=== PATIENT | female | born 1950 | race Hispanic/Latino ===

== ENCOUNTER → 2019-04-12 | Outpatient (CLI) | payer MEDICARE ==
--- NOTE | 2019-04-29 14:32 | Diagnostic Imaging Report ---
#[id number] - MGSCRBIL #BILATERAL DIGITAL SCREENING MAMMOGRAM WITH CAD: 04/12/2019 CLINICAL: Routine screening. No prior exams were available for comparison. There are scattered fibroglandular elements in both breasts. Current study was also evaluated with a Computer Aided Detection (CAD) system. There are benign calcifications in both breasts. There also are benign lymph nodes in both breasts. Additionally there are benign vascular calcifications in the right breast. No significant masses, calcifications, or other findings are seen in either breast. IMPRESSION: BENIGN There is no mammographic evidence of malignancy. A 1 year screening mammogram is recommended. The patient will be notified by letter of the results. JON [email or web address]:04/29/2019 10:34:59 [employer] Support: Leonila COLON)(Jean), [facility] letter sent: Normal Exam Mammogram BI-RADS: 2 Benign
== END ==
LOC: MAMMO 10:23 → EDBD 11:00
PROVIDERS: ATTEND Internal Medicine
DX: Z12.31 Encounter for screening mammogram for malignant neoplasm of breast (principal)
CPT/HCPCS: 77067

== ENCOUNTER → 2020-05-20 | Outpatient (CLI) | payer MEDICARE | LOC: MAMMO 10:55 | PROVIDERS: ATTEND Internal Medicine | DX: Z12.31 Encounter for screening mammogram for malignant neoplasm of breast (principal) | CPT/HCPCS: 77067 ==

== ENCOUNTER → 2020-09-16 | Outpatient (CLI) | payer MEDICARE | LOC: CT 15:07 | PROVIDERS: ATTEND Internal Medicine | DX: Z72.0 Tobacco use (principal) | CPT/HCPCS: 71250 ==

== ENCOUNTER → 2021-05-24 | Outpatient (CLI) | payer MEDICARE | LOC: MAMMO 14:22 | PROVIDERS: ATTEND Internal Medicine | DX: Z12.31 Encounter for screening mammogram for malignant neoplasm of breast (principal) | CPT/HCPCS: 77067 ==

== ENCOUNTER → 2022-06-08 | Outpatient (CLI) | payer MEDICARE | LOC: MAMMO 12:53 | PROVIDERS: ATTEND Internal Medicine | DX: Z12.31 Encounter for screening mammogram for malignant neoplasm of breast (principal) | CPT/HCPCS: 77067 ==

== ENCOUNTER → 2022-09-30 | Outpatient (CLI) | payer MEDICARE | LOC: DX 14:24 | PROVIDERS: ATTEND Internal Medicine | DX: M85.88 Other specified disorders of bone density and structure, other site (principal) | CPT/HCPCS: 77080 ==

== ENCOUNTER → 2023-02-08 | Outpatient (REF) | payer MEDICARE ==
[~2023-02-08] MED LIST: GADOBENATE DIMEGLUMINE 1 ML IV ONE
== END ==
LOC: MRI 10:31
PROVIDERS: ATTEND Internal Medicine
DX: I65.21 Occlusion and stenosis of right carotid artery (principal)
CPT/HCPCS: 70549

== ENCOUNTER 2023-08-21 09:16 | Inpatient (IN) | payer MEDICARE ==
[~2023-08-21] VITALS: Ht 152.4 cm; Wt 65.8 kg
[2023-08-21] VITALS (7 sets, daily range): BP systolic 98–121; BP diastolic 42–65; PULSE 70–86; RESP 17–20; TEMP 97–98.4; O2SAT 89–100
[2023-08-21] MEDS: SODIUM CHLORIDE 0.9% 1000ML 1,000 ML IV STA (10:15)
[2023-08-21] MEDS: HYDROCODONE/APAP 5MG-325MG TAB PO ONE (10:23)
[2023-08-21 10:24] LABS: BASOPHILS % 0.1 % (0.0-1.0); EOSINOPHILS # (AUTO) 0.1 (0.0-0.4); EOSINOPHILS % 0.3 % (0.0-6.0); HEMATOCRIT 29.5 % (34.2-44.1); HEMOGLOBIN 9.7 g/dL (12.0-16.0); LYMPHOCYTES # (AUTO) 0.8 (1.0-3.2); LYMPHOCYTES % 4.7 % (18.0-39.1); MEAN CORPUSCULAR HEMOGLOBIN 28.4 pg (28-32); MEAN CORPUSCULAR HGB CONC 32.9 g/dL (31-35); MEAN CORPUSCULAR VOLUME 86.5 fL (81-99); MONOCYTES # (AUTO) 0.9 (0.2-0.8); MONOCYTES % 5.4 % (4.4-11.3); NEUTROPHILS # (AUTO) 14.9 (2.1-6.9); NEUTROPHILS % 88.9 % (38.7-80.0); PLATELET COUNT 233 x10e3/uL (140-360); RED BLOOD COUNT 3.41 x10e6/uL (3.6-5.1); RED CELL DISTRIBUTION WIDTH 14.7 % (11.7-14.4)
[2023-08-21 10:38] LABS: INR 1.12; PROTHROMBIN TIME 15.2 seconds (11.9-14.5)
[2023-08-21 10:49] LABS: TROPONIN I 0.023 ng/mL (0-0.300)
[2023-08-21 10:52] LABS: ALBUMIN 2.4 g/dL (3.5-5.0); ALBUMIN/GLOBULIN RATIO 0.4 (0.8-2.0); ANION GAP 16.1 mmol/L (8-16); BILIRUBIN,TOTAL 0.8 mg/dL (0.2-1.2); CREATININE, SERUM 1.86 mg/dL (0.57-1.11); MAGNESIUM 1.9 MG/DL (1.3-2.1); POTASSIUM 4.1 mmol/L (3.5-5.1)
[2023-08-21] MEDS: Morphine 4mg INJECTION 4 MG/ML INJ IV ONE (11:33)
[2023-08-21] MEDS: ONDANSETRON HCL INJ 2MG/ML 2ML 2 MG/ML VIAL IV STA (11:33)
[2023-08-21] MEDS: NICOTINE 14 MG/EA PATCH TOP SCH (13:00)
[2023-08-21] MEDS: IPRATROPIUM BROMIDE 0.02% 2.5 ML NEB NEB SCH (13:33)
[2023-08-21] MEDS: ALBUTEROL SULF 0.083% NEB SOLN 3 ML NEB NEB SCH (13:33)
[2023-08-21] MEDS ORDERED: ALBUTEROL/IPRATROPIUM 3 ML NEB NEB PRN (15:30)
[2023-08-21] MEDS ORDERED: ONDANSETRON HCL INJ 2MG/ML 2ML 2 MG/ML VIAL IV PRN (15:30)
[2023-08-21] MEDS: ACETAMINOPHEN 325 MG TAB PO PRN (15:34)
[2023-08-21] MEDS ORDERED: LISINOPRIL10 MG PO (15:42)
[2023-08-21] MEDS ORDERED: OZEMPIC1 MG/0.71 SC (15:42)
[2023-08-21] MEDS ORDERED: LEVEMIR100 UNIT/1 SC (15:42)
[2023-08-21] MEDS ORDERED: EZETIMIBE10 MG PO (15:42)
[2023-08-21] MEDS ORDERED: SYNJARDY XR 251 EACH PO (15:42)
[2023-08-21] MEDS ORDERED: ATORVASTATIN CA20 MG PO (15:42)
[2023-08-21] MEDS ORDERED: zinc PO (15:42)
[2023-08-21] MEDS ORDERED: GEMTESA75 MG PO (15:42)
[2023-08-21] MEDS ORDERED: GABAPENTIN400 MG PO (15:42)
[2023-08-21 17:30] LABS: TROPONIN I 0.023 ng/mL (0-0.300)
[2023-08-21] MEDS ORDERED: DEXTROSE 50% SYRINGE 50 ML IV PRN (18:15)
[2023-08-21] MEDS: METHYLPREDNISOLONE SOD SUCC 40 MG/ML VIAL 1ML IV ONE (18:58)
[2023-08-21] MEDS: SODIUM CHLORIDE 0.9% 1000ML 1,000 ML IV SCH (18:59)
[2023-08-21] MEDS: ALBUTEROL/IPRATROPIUM 3 ML NEB NEB SCH (19:01)
[2023-08-21] MEDS: GABAPENTIN 400 MG CAP PO SCH (20:41)
[2023-08-21] MEDS: CELECOXIB 100 MG CAP PO SCH (20:41)
[2023-08-21] MEDS: INSULIN LISPRO 100 UNIT/1 ML 3ML VIAL SQ SCH (20:50)
[2023-08-21] MEDS: BENZONATATE 100 MG CAP PO PRN (23:01)
[2023-08-21] MEDS: TRAMADOL HCL 50 MG TAB PO PRN (23:02)
[2023-08-22] VITALS (13 sets, daily range): BP systolic 113–129; BP diastolic 49–57; PULSE 68–102; RESP 16–20; TEMP 97.3–98.4; O2SAT 92–100
[2023-08-22 06:10] LABS: BASOPHILS % 0.1 % (0.0-1.0); HEMATOCRIT 27.2 % (34.2-44.1); HEMOGLOBIN 8.8 g/dL (12.0-16.0); LYMPHOCYTES # (AUTO) 0.4 (1.0-3.2); MEAN CORPUSCULAR HEMOGLOBIN 28.3 pg (28-32); MEAN CORPUSCULAR HGB CONC 32.4 g/dL (31-35); MEAN CORPUSCULAR VOLUME 87.5 fL (81-99); MONOCYTES # (AUTO) 0.1 (0.2-0.8); MONOCYTES % 0.8 % (4.4-11.3); NEUTROPHILS # (AUTO) 11.1 (2.1-6.9); NEUTROPHILS % 95.6 % (38.7-80.0); PLATELET COUNT 205 x10e3/uL (140-360); RED BLOOD COUNT 3.11 x10e6/uL (3.6-5.1); RED CELL DISTRIBUTION WIDTH 14.6 % (11.7-14.4); WHITE BLOOD COUNT 11.63 x10e3/uL (4.8-10.8)
[2023-08-22 06:25] LABS: ALBUMIN/GLOBULIN RATIO 0.4 (0.8-2.0); ANION GAP 14.3 mmol/L (8-16); BILIRUBIN,TOTAL 0.3 mg/dL (0.2-1.2); CALCIUM 9.8 mg/dL (8.4-10.2); CREATININE, SERUM 1.66 mg/dL (0.57-1.11); POTASSIUM 4.3 mmol/L (3.5-5.1); TOTAL PROTEIN 7.3 g/dL (6.5-8.1)
[2023-08-22 06:47] LABS: TROPONIN I 0.028 ng/mL (0-0.300)
[2023-08-22] MEDS: EZETIMIBE 10 MG TAB PO SCH (08:18)
[2023-08-22] MEDS: ATORVASTATIN 20 MG TAB PO SCH (08:19)
[2023-08-22] MEDS ORDERED: LISINOPRIL 10 MG TAB PO SCH (09:00)
[2023-08-22] MEDS: METHYLPREDNISOLONE SOD SUCC 40 MG/ML VIAL 1ML IV SCH (09:41)
[2023-08-22] MEDS: INSULIN GLARGINE 100 UNITS/ML VIAL SQ ONE (09:53)
[2023-08-22] MEDS ORDERED: ONDANSETRON HCL 4 MG ORAL DISINTEGRATING TAB PO PRN (11:00)
[2023-08-22] MEDS: INSULIN GLARGINE 100 UNITS/ML VIAL SC SCH (22:01)
[2023-08-23] VITALS (11 sets, daily range): BP systolic 136–138; BP diastolic 55–61; PULSE 80–92; RESP 16–20; TEMP 97.5–98.5; O2SAT 94–100
[2023-08-23 06:11] LABS: BASOPHILS % 0.1 % (0.0-1.0); HEMATOCRIT 25.7 % (34.2-44.1); HEMOGLOBIN 8.2 g/dL (12.0-16.0); LYMPHOCYTES # (AUTO) 0.5 (1.0-3.2); LYMPHOCYTES % 2.4 % (18.0-39.1); MEAN CORPUSCULAR HGB CONC 31.9 g/dL (31-35); MEAN CORPUSCULAR VOLUME 87.7 fL (81-99); MONOCYTES # (AUTO) 0.3 (0.2-0.8); MONOCYTES % 1.5 % (4.4-11.3); NEUTROPHILS # (AUTO) 19.3 (2.1-6.9); NEUTROPHILS % 94.8 % (38.7-80.0); PLATELET COUNT 234 x10e3/uL (140-360); RED BLOOD COUNT 2.93 x10e6/uL (3.6-5.1); RED CELL DISTRIBUTION WIDTH 14.8 % (11.7-14.4); WHITE BLOOD COUNT 20.39 x10e3/uL (4.8-10.8)
[2023-08-23 07:45] LABS: ANION GAP 13.2 mmol/L (8-16); CREATININE, SERUM 1.71 mg/dL (0.57-1.11); POTASSIUM 4.2 mmol/L (3.5-5.1)
[2023-08-23 08:08] LABS: THYROID STIMULATING HORMONE 0.268 uIU/mL (0.350-4.940)
[2023-08-23] MEDS ORDERED: DEXTROSE 50% SYRINGE 50 ML IV PRN (08:15)
[2023-08-23 08:21] LABS: FOLATE 11.9 ng/mL (7.0-15.4)
[2023-08-23] MEDS: INSULIN GLARGINE 100 UNITS/ML VIAL SQ ONE (08:29)
[2023-08-23] MEDS: METHYLPREDNISOLONE SOD SUCC 40 MG/ML VIAL 1ML IV SCH (09:38)
[2023-08-23] MEDS: GUAIFENESIN 600 MG TAB PO SCH (09:38)
[2023-08-23] MEDS ORDERED: GUAIFENESIN/CODEINE 5 ML LIQD PO PRN (09:45)
[2023-08-23] MEDS: SODIUM CHLORIDE 0.9% 1000ML 1,000 ML IV ONE (10:28)
[2023-08-23 10:42] LABS: LYMPHOCYTES % (MANUAL) 2 % (19-48); NEUTROPHILS % (MANUAL) 98 % (40-74); PLATELET ESTIMATE ADEQUATE; PLATELET MORPHOLOGY COMMENT NORMAL; RBC MORPHOLOGY COMMENT NORMAL
[2023-08-23] MEDS: INSULIN LISPRO 100 UNIT/1 ML 3ML VIAL SQ SCH (12:01)
[2023-08-23] MEDS: GUAIFENESIN/CODEINE 5 ML LIQD PO PRN (12:22)
[2023-08-24] VITALS (12 sets, daily range): BP systolic 123–144; BP diastolic 50–62; PULSE 78–91; RESP 16–21; TEMP 97.2–98.8; O2SAT 94–100
[2023-08-24 06:21] LABS: BASOPHILS % 0.1 % (0.0-1.0); HEMOGLOBIN 7.9 g/dL (12.0-16.0); LYMPHOCYTES # (AUTO) 0.9 (1.0-3.2); LYMPHOCYTES % 5.7 % (18.0-39.1); MEAN CORPUSCULAR HEMOGLOBIN 28.4 pg (28-32); MEAN CORPUSCULAR HGB CONC 32.9 g/dL (31-35); MEAN CORPUSCULAR VOLUME 86.3 fL (81-99); MONOCYTES # (AUTO) 0.5 (0.2-0.8); MONOCYTES % 3.1 % (4.4-11.3); NEUTROPHILS # (AUTO) 14.7 (2.1-6.9); NEUTROPHILS % 89.9 % (38.7-80.0); PLATELET COUNT 235 x10e3/uL (140-360); RED BLOOD COUNT 2.78 x10e6/uL (3.6-5.1); RED CELL DISTRIBUTION WIDTH 14.9 % (11.7-14.4); WHITE BLOOD COUNT 16.36 x10e3/uL (4.8-10.8)
[2023-08-24 06:47] LABS: ALBUMIN/GLOBULIN RATIO 0.4 (0.8-2.0); ANION GAP 12.4 mmol/L (8-16); BILIRUBIN,TOTAL 0.2 mg/dL (0.2-1.2); CALCIUM 9.4 mg/dL (8.4-10.2); CREATININE, SERUM 1.43 mg/dL (0.57-1.11); POTASSIUM 4.4 mmol/L (3.5-5.1); TOTAL PROTEIN 6.6 g/dL (6.5-8.1)
[2023-08-24] MEDS: SODIUM CHLORIDE 0.9% 1000ML 1,000 ML IV ONE (10:56)
[2023-08-24] MEDS: BENZONATATE 100 MG CAP PO SCH (11:04)
[2023-08-25] VITALS (11 sets, daily range): BP systolic 106–126; BP diastolic 49–66; PULSE 71–88; RESP 16–19; TEMP 97.6–98.4; O2SAT 95–100
[2023-08-25 05:32] LABS: BASOPHILS % 0.1 % (0.0-1.0); EOSINOPHILS # (AUTO) 0.1 (0.0-0.4); EOSINOPHILS % 0.9 % (0.0-6.0); HEMATOCRIT 25.3 % (34.2-44.1); HEMOGLOBIN 8.1 g/dL (12.0-16.0); LYMPHOCYTES # (AUTO) 1.8 (1.0-3.2); LYMPHOCYTES % 15.8 % (18.0-39.1); MEAN CORPUSCULAR HEMOGLOBIN 27.9 pg (28-32); MEAN CORPUSCULAR VOLUME 87.2 fL (81-99); MONOCYTES # (AUTO) 0.6 (0.2-0.8); NEUTROPHILS # (AUTO) 8.6 (2.1-6.9); NEUTROPHILS % 76.8 % (38.7-80.0); PLATELET COUNT 227 x10e3/uL (140-360); RED CELL DISTRIBUTION WIDTH 15.1 % (11.7-14.4); WHITE BLOOD COUNT 11.19 x10e3/uL (4.8-10.8)
[2023-08-25 06:23] LABS: ALBUMIN/GLOBULIN RATIO 0.5 (0.8-2.0); ANION GAP 13.6 mmol/L (8-16); BILIRUBIN,TOTAL 0.2 mg/dL (0.2-1.2); CALCIUM 8.9 mg/dL (8.4-10.2); CREATININE, SERUM 1.31 mg/dL (0.57-1.11); POTASSIUM 4.6 mmol/L (3.5-5.1); TOTAL PROTEIN 6.2 g/dL (6.5-8.1)
[2023-08-26] VITALS (7 sets, daily range): BP systolic 108–130; BP diastolic 47–59; PULSE 73–94; RESP 16–18; TEMP 97.6–98.8; O2SAT 97–99
[2023-08-26] MEDS: PANTOPRAZOLE SOD 40 MG TABEC PO SCH (09:19)
== END 2023-08-26 14:00 | disposition home or self-care (01) | DRG 190 ==
LOC: ER 09:22 → ERHOLD 12:48 → MED/SURG3 14:08
PROVIDERS: ADMIT Internal Medicine; ATTEND Internal Medicine
DX: J44.0 Chronic obstructive pulmonary disease with (acute) lower respiratory infection (principal); J18.9 Pneumonia, unspecified organism; N17.9 Acute kidney failure, unspecified; J44.1 Chronic obstructive pulmonary disease with (acute) exacerbation; I12.9 Hypertensive chronic kidney disease with stage 1 through stage 4 chronic kidney disease, or unspecified chronic kidney disease; E11.22 Type 2 diabetes mellitus with diabetic chronic kidney disease; N18.30 Chronic kidney disease, stage 3 unspecified; E11.65 Type 2 diabetes mellitus with hyperglycemia; E11.42 Type 2 diabetes mellitus with diabetic polyneuropathy; Z11.52 Encounter for screening for COVID-19; T38.0X5A Adverse effect of glucocorticoids and synthetic analogues, initial encounter; E78.5 Hyperlipidemia, unspecified; F17.200 Nicotine dependence, unspecified, uncomplicated
CPT/HCPCS: 36415; 71045; 71046; 71250; 80048; 80053; 82550; 82607; 82746; 82948; 83036; 83540; 83605; 83735; 83880; 84443; 84466; 84484; 85025; 85379; 85610; 85730; 87040; 87400; 87420; 93005; 93306; 94799; 96372; 99284; J0696; J1815; J2270; J2405; J2919; J7030; J7050; U0002

== ENCOUNTER → 2023-12-06 | Outpatient (REF) | payer MEDICARE ==
[~2023-12-06] MED LIST changes: +ATORVASTATIN CA20 MG PO; +EZETIMIBE10 MG PO; +GABAPENTIN400 MG PO; -GADOBENATE DIMEGLUMINE 1 ML IV ONE; +GEMTESA75 MG PO; +LEVEMIR100 UNIT/1 SC; +LISINOPRIL10 MG PO; +OZEMPIC1 MG/0.71 SC; +SYNJARDY XR 251 EACH PO; +zinc PO
== END ==
LOC: RAD 12:13
PROVIDERS: ATTEND Internal Medicine
DX: M43.07 Spondylolysis, lumbosacral region (principal)
CPT/HCPCS: 72110

== ENCOUNTER → 2023-12-06 | Outpatient (REF) | payer MEDICARE | LOC: RAD 12:06 | PROVIDERS: ATTEND Internal Medicine Critical Care Medicine | DX: J18.9 Pneumonia, unspecified organism (principal) | CPT/HCPCS: 71046 ==

== ENCOUNTER → 2024-04-26 | Outpatient (REF) | payer MEDICARE ==
[~2024-04-26] MED LIST changes: +IOPAMIDOL 370 MG/ML 100 ML INFUS..BTL INJ ONE; +SODIUM CHLORIDE 0.9% 500ML 500 ML ONE
[2024-04-26 16:28] LABS: CREATININE, SERUM 1.53 mg/dL (0.57-1.11)
== END ==
LOC: CT 15:40
PROVIDERS: ATTEND Internal Medicine
DX: R10.10 Upper abdominal pain, unspecified (principal); R91.1 Solitary pulmonary nodule
CPT/HCPCS: 36415; 71260; 74019; 82565; 84520; 96360; J7040; Q9967

== ENCOUNTER → 2024-07-26 | Outpatient (REF) | payer MEDICARE ==
[~2024-07-26] MED LIST changes: -IOPAMIDOL 370 MG/ML 100 ML INFUS..BTL INJ ONE; -SODIUM CHLORIDE 0.9% 500ML 500 ML ONE
== END ==
LOC: MAMMO 13:23
PROVIDERS: ATTEND Internal Medicine
DX: Z12.31 Encounter for screening mammogram for malignant neoplasm of breast (principal); M85.88 Other specified disorders of bone density and structure, other site
CPT/HCPCS: 77067; 77080

== ENCOUNTER 2024-10-09 18:10 | Inpatient (IN) | payer MEDICARE ==
[~2024-10-09] VITALS: Ht 152.4 cm; Wt 71.8 kg
[2024-10-09 18:58] LABS: BASOPHILS % 0.2 % (0.0-1.0); EOSINOPHILS # (AUTO) 0.1 (0.0-0.4); EOSINOPHILS % 0.8 % (0.0-6.0); HEMATOCRIT 28.5 % (34.2-44.1); LYMPHOCYTES # (AUTO) 0.9 (1.0-3.2); LYMPHOCYTES % 7.2 % (18.0-39.1); MEAN CORPUSCULAR HGB CONC 31.6 g/dL (31-35); MEAN CORPUSCULAR VOLUME 88.8 fL (81-99); MONOCYTES # (AUTO) 0.6 (0.2-0.8); MONOCYTES % 5.1 % (4.4-11.3); NEUTROPHILS # (AUTO) 10.8 (2.1-6.9); NEUTROPHILS % 86.2 % (38.7-80.0); PLATELET COUNT 202 x10e3/uL (140-360); RED BLOOD COUNT 3.21 x10e6/uL (3.6-5.1); RED CELL DISTRIBUTION WIDTH 15.1 % (11.7-14.4); WHITE BLOOD COUNT 12.47 x10e3/uL (4.8-10.8)
[2024-10-09] MEDS ORDERED: PIPERACILLIN/TAZOBACTAM 3.375 GM VIAL ONE (19:05)
[2024-10-09] MEDS: ACETAMINOPHEN 325 MG TAB PO STA (19:09)
[2024-10-09] MEDS: SODIUM CHLORIDE 0.9% 1000ML 1,000 ML IV STA (19:09)
[2024-10-09 19:11] LABS: ALBUMIN 2.7 g/dL (3.5-5.0); ALBUMIN/GLOBULIN RATIO 0.6 (0.8-2.0); ANION GAP 14.6 mmol/L (8-16); BILIRUBIN,TOTAL 0.6 mg/dL (0.2-1.2); CALCIUM 9.9 mg/dL (8.4-10.2); CREATININE, SERUM 1.64 mg/dL (0.57-1.11); POTASSIUM 4.6 mmol/L (3.5-5.1); TOTAL PROTEIN 7.5 g/dL (6.5-8.1)
[2024-10-09 19:16] LABS: TROPONIN I 0.006 ng/mL (0-0.300)
[2024-10-09 20:20] LABS: STREPTOCOCCUS GRP A ANTIGEN NEGATIVE (NEGATIVE)
[2024-10-09 20:22] VITALS: TEMP 99.3
[2024-10-09 20:27] LABS: INFLUENZA A AG NEGATIVE (NEGATIVE)
[2024-10-09 20:28] LABS: CORONAVIRUS COVID-19 AG NEGATIVE (NEGATIVE); INFLUENZA B AG NEGATIVE (NEGATIVE)
[2024-10-09 20:31] LABS: CLARITY,URINE CLEAR (CLEAR); COLOR,URINE YELLOW (YELLOW)
[2024-10-09 20:34] LABS: LEUKOCYTE ESTERASE ,URINE NEGATIVE (NEGATIVE); NITRITE,URINE NEGATIVE (NEGATIVE); PH,URINE 5.5 (5 - 7)
[2024-10-09 20:35] LABS: GLUCOSE, URINE >=1000 (NEGATIVE); KETONES,URINE NEGATIVE (NEGATIVE); PROTEIN,URINE DIPSTICK 2+ (NEGATIVE); URINE UROBILINOGEN 1 mg/dL (0.2 - 1)
[2024-10-09 20:36] LABS: BILIRUBIN,URINE NEGATIVE (NEGATIVE)
[2024-10-09 20:45] LABS: BACTERIA,URINE FEW /HPF; EPITHELIAL CELLS,URINE FEW /LPF; RBC,URINE 0-5 /HPF (0-5)
[2024-10-09 21:04] VITALS: PULSE 79; RESP 24
[2024-10-09] MEDS: SODIUM CHLORIDE 0.9% 1000ML 1,000 ML IV SCH (21:12)
[2024-10-09 22:29] VITALS: PULSE 71; RESP 18; O2SAT 95
[2024-10-09] MEDS ORDERED: FENOFIBRATE145 M1 PO (23:30)
[2024-10-09] MEDS ORDERED: LOSARTAN POTASS25 MG PO (23:30)
[2024-10-09] MEDS ORDERED: FUROSEMIDE20 MG PO (23:30)
[2024-10-09] MEDS ORDERED: TIZANIDINE HCL2 MG PO (23:33)
[2024-10-09] MEDS ORDERED: PENTOXIFYLLINE400 MG PO (23:33)
[2024-10-10] VITALS (12 sets, daily range): BP systolic 104–115; BP diastolic 42–53; PULSE 71–88; RESP 18–20; TEMP 97.3–100; O2SAT 93–100
[2024-10-10 06:47] LABS: ANION GAP 14.1 mmol/L (8-16); CALCIUM 9.3 mg/dL (8.4-10.2); CREATININE, SERUM 1.49 mg/dL (0.57-1.11); POTASSIUM 4.1 mmol/L (3.5-5.1)
[2024-10-10 07:00] LABS: BASOPHILS % 0.3 % (0.0-1.0); EOSINOPHILS # (AUTO) 0.1 (0.0-0.4); EOSINOPHILS % 1.3 % (0.0-6.0); HEMATOCRIT 26.2 % (34.2-44.1); HEMOGLOBIN 8.1 g/dL (12.0-16.0); LYMPHOCYTES % 10.8 % (18.0-39.1); MEAN CORPUSCULAR HEMOGLOBIN 28.4 pg (28-32); MEAN CORPUSCULAR HGB CONC 30.9 g/dL (31-35); MEAN CORPUSCULAR VOLUME 91.9 fL (81-99); MONOCYTES # (AUTO) 0.5 (0.2-0.8); MONOCYTES % 5.4 % (4.4-11.3); NEUTROPHILS # (AUTO) 7.8 (2.1-6.9); NEUTROPHILS % 81.7 % (38.7-80.0); PLATELET COUNT 168 x10e3/uL (140-360); RED BLOOD COUNT 2.85 x10e6/uL (3.6-5.1)
[2024-10-10 07:15] LABS: TROPONIN I 0.004 ng/mL (0-0.300)
[2024-10-10] MEDS: Morphine 4mg INJECTION 4 MG/ML INJ IV PRN (07:29)
[2024-10-10] MEDS ORDERED: DEXTROSE 50% SYRINGE 50 ML IV PRN (12:00)
[2024-10-10] MEDS: GABAPENTIN 400 MG CAP PO SCH (13:20)
[2024-10-10 14:02] LABS: TROPONIN I 0.007 ng/mL (0-0.300)
[2024-10-10] MEDS: FENOFIBRATE 145 MG TAB PO SCH (14:37)
[2024-10-10] MEDS ORDERED: GUAIFENESIN 600 MG TAB PO ONE ×2 (15:45→21:15)
[2024-10-10] MEDS ORDERED: SODIUM CHLORIDE 0.9% IV ONE (15:45)
[2024-10-10] MEDS: PENTOXIFYLLINE 400 MG TAB CR PO SCH (16:25)
[2024-10-10] MEDS: KETOROLAC TROMETHAMINE 30 MG/ML VIAL IV ONE (16:27)
[2024-10-10] MEDS: ACETYLCYSTEINE 200 MG/ML 4 ML VIAL PO ONE ×2 (16:28→21:03)
[2024-10-10] MEDS: SODIUM CHLORIDE 0.9% 1000ML 1,000 ML IV ONE (16:30)
[2024-10-10] MEDS: INSULIN REGULAR, HUMAN 100 UNIT/1 ML SQ SCH (16:35)
[2024-10-10] MEDS: METFORMIN HCL 500 MG TAB PO SCH (17:00)
[2024-10-10] MEDS ORDERED: IOPAMIDOL 370 MG/ML 100 ML INFUS..BTL INJ ONE (18:32)
[2024-10-10] MEDS: ATORVASTATIN 20 MG TAB PO SCH (21:01)
[2024-10-11] VITALS (7 sets, daily range): BP systolic 103–131; BP diastolic 41–60; PULSE 69–84; RESP 17–20; TEMP 97.3–98.4; O2SAT 94–100
[2024-10-11] MEDS: ONDANSETRON HCL INJ 2MG/ML 2ML 2 MG/ML VIAL IV PRN (06:07)
[2024-10-11 06:14] LABS: BASOPHILS % 0.2 % (0.0-1.0); EOSINOPHILS # (AUTO) 0.2 (0.0-0.4); HEMATOCRIT 23.5 % (34.2-44.1); HEMOGLOBIN 7.3 g/dL (12.0-16.0); LYMPHOCYTES % 10.9 % (18.0-39.1); MEAN CORPUSCULAR HEMOGLOBIN 28.7 pg (28-32); MEAN CORPUSCULAR HGB CONC 31.1 g/dL (31-35); MEAN CORPUSCULAR VOLUME 92.5 fL (81-99); MONOCYTES # (AUTO) 0.5 (0.2-0.8); MONOCYTES % 5.8 % (4.4-11.3); NEUTROPHILS # (AUTO) 7.1 (2.1-6.9); NEUTROPHILS % 80.6 % (38.7-80.0); PLATELET COUNT 187 x10e3/uL (140-360); RED BLOOD COUNT 2.54 x10e6/uL (3.6-5.1); RED CELL DISTRIBUTION WIDTH 15.5 % (11.7-14.4); WHITE BLOOD COUNT 8.81 x10e3/uL (4.8-10.8)
[2024-10-11 07:06] LABS: THYROID STIMULATING HORMONE 2.104 uIU/mL (0.350-4.940)
[2024-10-11 07:36] LABS: ALBUMIN 2.1 g/dL (3.5-5.0); ALBUMIN/GLOBULIN RATIO 0.5 (0.8-2.0); ANION GAP 15.3 mmol/L (8-16); BILIRUBIN,TOTAL 0.4 mg/dL (0.2-1.2); CALCIUM 9.2 mg/dL (8.4-10.2); CREATININE, SERUM 1.66 mg/dL (0.57-1.11); POTASSIUM 4.3 mmol/L (3.5-5.1); TOTAL PROTEIN 6.5 g/dL (6.5-8.1)
[2024-10-11 07:43] LABS: % IRON SATURATION 9 % (15-50); IRON 18 ug/dL (50-170); TOTAL IRON BINDING CAPACITY 202 ug/dL (261-478); TRANSFERRIN 144 mg/dL (180-382)
[2024-10-11] MEDS: FUROSEMIDE 20 MG TAB PO SCH (09:21)
[2024-10-11] MEDS: LOSARTAN POTASSIUM 25 MG TAB PO SCH (09:22)
[2024-10-11] MEDS: Vibegron (Gemtesa) 75 MG TAB PO SCH (09:31)
[2024-10-11] MEDS: IRON SUCROSE 100 MG in SODIUM CHLORIDE 0.9% 100 ML IV SCH (11:55)
[2024-10-12] VITALS (8 sets, daily range): BP systolic 91–144; BP diastolic 48–68; PULSE 69–88; RESP 17–22; TEMP 97.3–98.6; O2SAT 94–99
[2024-10-12 06:23] LABS: BASOPHILS % 0.2 % (0.0-1.0); EOSINOPHILS # (AUTO) 0.2 (0.0-0.4); HEMOGLOBIN 7.6 g/dL (12.0-16.0); LYMPHOCYTES # (AUTO) 1.2 (1.0-3.2); LYMPHOCYTES % 13.9 % (18.0-39.1); MEAN CORPUSCULAR HGB CONC 30.4 g/dL (31-35); MEAN CORPUSCULAR VOLUME 92.3 fL (81-99); MONOCYTES # (AUTO) 0.5 (0.2-0.8); MONOCYTES % 5.5 % (4.4-11.3); NEUTROPHILS # (AUTO) 6.6 (2.1-6.9); NEUTROPHILS % 77.7 % (38.7-80.0); PLATELET COUNT 213 x10e3/uL (140-360); RED BLOOD COUNT 2.71 x10e6/uL (3.6-5.1); RED CELL DISTRIBUTION WIDTH 15.6 % (11.7-14.4); WHITE BLOOD COUNT 8.47 x10e3/uL (4.8-10.8)
[2024-10-12 06:40] LABS: ANION GAP 13.3 mmol/L (8-16); CALCIUM 9.2 mg/dL (8.4-10.2); CREATININE, SERUM 1.9 mg/dL (0.57-1.11); POTASSIUM 4.3 mmol/L (3.5-5.1)
[2024-10-12] MEDS ORDERED: SODIUM BICARBONATE 8.4% SYRING 50 ML in SODIUM CHLORIDE 0.45% 1,000 ML IV ONE (09:45)
[2024-10-12] MEDS: PANTOPRAZOLE SOD 40 MG TABEC PO SCH (10:01)
[2024-10-12] MEDS: SODIUM BICARBONATE 8.4% VIAL 50 ML in SODIUM CHLORIDE 0.45% 1,000 ML IV ONE (11:48)
[2024-10-13 04:30] VITALS: BP 127/60; PULSE 72; RESP 17; TEMP 97.8; O2SAT 96
[2024-10-13 05:56] LABS: BASOPHILS % 0.3 % (0.0-1.0); EOSINOPHILS # (AUTO) 0.2 (0.0-0.4); EOSINOPHILS % 2.4 % (0.0-6.0); HEMATOCRIT 25.2 % (34.2-44.1); HEMOGLOBIN 7.9 g/dL (12.0-16.0); LYMPHOCYTES # (AUTO) 1.2 (1.0-3.2); LYMPHOCYTES % 17.1 % (18.0-39.1); MEAN CORPUSCULAR HEMOGLOBIN 28.5 pg (28-32); MEAN CORPUSCULAR HGB CONC 31.3 g/dL (31-35); MONOCYTES # (AUTO) 0.4 (0.2-0.8); MONOCYTES % 5.9 % (4.4-11.3); NEUTROPHILS # (AUTO) 5.3 (2.1-6.9); NEUTROPHILS % 73.6 % (38.7-80.0); PLATELET COUNT 232 x10e3/uL (140-360); RED BLOOD COUNT 2.77 x10e6/uL (3.6-5.1); RED CELL DISTRIBUTION WIDTH 15.7 % (11.7-14.4); WHITE BLOOD COUNT 7.15 x10e3/uL (4.8-10.8)
[2024-10-13 06:21] LABS: ALBUMIN 2.2 g/dL (3.5-5.0); ALBUMIN/GLOBULIN RATIO 0.5 (0.8-2.0); ANION GAP 12.4 mmol/L (8-16); BILIRUBIN,TOTAL 0.3 mg/dL (0.2-1.2); CALCIUM 9.3 mg/dL (8.4-10.2); CREATININE, SERUM 1.65 mg/dL (0.57-1.11); POTASSIUM 4.4 mmol/L (3.5-5.1); TOTAL PROTEIN 6.5 g/dL (6.5-8.1)
[2024-10-13 08:07] VITALS: BP 132/61; PULSE 74; RESP 18; TEMP 97.8; O2SAT 100
[2024-10-13 08:10] VITALS: BP 132/61; PULSE 74; RESP 18; TEMP 97.8; O2SAT 100
[2024-10-13] MEDS ORDERED: LEVOFLOXACIN250 MG PO (11:29)
[2024-10-13 13:52] VITALS: BP 129/58; PULSE 72; RESP 18; TEMP 98; O2SAT 100
== END 2024-10-13 13:50 | disposition home or self-care (01) | DRG 871 ==
LOC: ER 18:15 → ERHOLD 21:00 → MED/SURG3 21:55
PROVIDERS: ADMIT Internal Medicine; ATTEND Internal Medicine
DX: A41.9 Sepsis, unspecified organism (principal); J18.9 Pneumonia, unspecified organism; E87.20 Acidosis, unspecified; N17.9 Acute kidney failure, unspecified; I12.9 Hypertensive chronic kidney disease with stage 1 through stage 4 chronic kidney disease, or unspecified chronic kidney disease; E11.22 Type 2 diabetes mellitus with diabetic chronic kidney disease; N18.32 Chronic kidney disease, stage 3b; J44.9 Chronic obstructive pulmonary disease, unspecified; E11.40 Type 2 diabetes mellitus with diabetic neuropathy, unspecified; R07.89 Other chest pain; K21.9 Gastro-esophageal reflux disease without esophagitis; D50.9 Iron deficiency anemia, unspecified; Z79.85 Long-term (current) use of injectable non-insulin antidiabetic drugs; Z79.84 Long term (current) use of oral hypoglycemic drugs; Z11.52 Encounter for screening for COVID-19; Z79.4 Long term (current) use of insulin; Z87.891 Personal history of nicotine dependence; Z90.49 Acquired absence of other specified parts of digestive tract
CPT/HCPCS: 36415; 71045; 71260; 74177; 80048; 80053; 81001; 82550; 82607; 82746; 82948; 83036; 83518; 83540; 83605; 83690; 83880; 84443; 84466; 84484; 85025; 85045; 87040; 87070; 87086; 93005; 94799; 99252; 99284; J1756; J1885; J2270; J2405; J2470; J2543; J7030; J7050; Q9967

== ENCOUNTER → 2024-10-29 | Outpatient (REF) | payer MEDICARE ==
[~2024-10-29] MED LIST changes: +FENOFIBRATE145 M1 PO; +FUROSEMIDE20 MG PO; +LEVOFLOXACIN250 MG PO; +LOSARTAN POTASS25 MG PO; +PENTOXIFYLLINE400 MG PO; +TIZANIDINE HCL2 MG PO
== END ==
LOC: RAD 11:42
PROVIDERS: ATTEND Internal Medicine
DX: J18.9 Pneumonia, unspecified organism (principal)
CPT/HCPCS: 71046

== ENCOUNTER 2024-12-26 21:31 | Emergency (ER) | payer MEDICARE ==
[~2024-12-26] VITALS: Ht 152.4 cm; Wt 71.7 kg
[2024-12-26] MEDS ORDERED: SODIUM CHLORIDE FLUSH 10 ML SYR IV PRN (22:45)
[2024-12-26 22:57] LABS: BASOPHILS % 0.1 % (0.0-1.0); EOSINOPHILS % 0.0 % (0.0-6.0); LYMPHOCYTES % 2.4 % (18.0-39.1); MONOCYTES % 5.7 % (4.4-11.3); NEUTROPHILS % 83.9 % (38.7-80.0); RED CELL DISTRIBUTION WIDTH 15.1 % (11.7-14.4)
[2024-12-26 23:19] LABS: EST GLOMERULAR FILTRATION RATE 24.0 ML/MIN (>=60)
[2024-12-26 23:27] LABS: CORONAVIRUS COVID-19 AG NEGATIVE (NEGATIVE)
[2024-12-27] MEDS: SODIUM CHLORIDE 0.9% 1000ML 1,000 ML IV ONE (01:17)
[2024-12-27] MEDS: ONDANSETRON HCL INJ 2MG/ML 2ML 2 MG/ML VIAL IV STA (01:17)
[2024-12-27 02:37] LABS: LEUKOCYTE ESTERASE ,URINE NEGATIVE (NEGATIVE); PROTEIN,URINE DIPSTICK 2+ (NEGATIVE); URINE UROBILINOGEN 0.2 mg/dL (0.2 - 1)
[2024-12-27 02:47] VITALS: TEMP 98.6
[2024-12-27 02:56] LABS: WBC,URINE (MAN) 0-5 /HPF (0-5)
[2024-12-27 02:57] LABS: EPITHELIAL CELLS,URINE FEW /LPF
[2024-12-27 04:16] VITALS: PULSE 71; RESP 23
[2024-12-27 04:22] VITALS: BP 105/50; PULSE 71; RESP 23; TEMP 98.1; O2SAT 95
[2024-12-27 04:25] LABS: LYMPHOCYTES % (MANUAL) 4 % (19-48); MONOCYTES % (MANUAL) 10 % (3.4-9.0); NEUTROPHILS % (MANUAL) 86 % (40-74)
[2024-12-27 04:26] LABS: RBC MORPHOLOGY COMMENT NORMAL
[2024-12-27 04:27] LABS: PLATELET ESTIMATE ADEQUATE; PLATELET MORPHOLOGY COMMENT NORMAL
[2024-12-27] MEDS ORDERED: ONDANSETRON ODT4 MG PO (04:28)
[2024-12-27] MEDS ORDERED: AZITHROMYCIN250 MG PO (04:28)
== END 2024-12-27 04:40 | disposition home or self-care (01) ==
LOC: ER 12-27 00:56
DX: R05.9 Cough, unspecified (principal); J40 Bronchitis, not specified as acute or chronic; R11.2 Nausea with vomiting, unspecified; R10.10 Upper abdominal pain, unspecified; E11.22 Type 2 diabetes mellitus with diabetic chronic kidney disease; E11.65 Type 2 diabetes mellitus with hyperglycemia
CPT/HCPCS: 36415; 71045; 74176; 80053; 81001; 82550; 84484; 85025; 87428; 93005; 99284; J2405; J2470; J7030